=== PATIENT | male | born 1960 | race Caucasian/White ===

== ENCOUNTER 2021-10-31 05:49 | Emergency (ER) | payer OTHER ==
--- OUTSIDE RECORDS SUMMARY | 2021-10-31 05:52 | XMS REPORT | Continuity of Care Document ---
:1960 Author Organization [facility] t Address [address] [place] [address] [address]. [address] [place] [address] Care Team Providers Name Role Phone [phone] Primary Care Physician Unavailable SYSTEM, NOT IN Attending Clinician Unavailable GALLO Attending Clinician Unavailable RUSLAN Attending Clinician Unavailable MARYELLEN MERCHANT Attending Clinician Unavailable SIM Attending Clinician Unavailable MODESTO Attending Clinician Unavailable CHERIE Attending Clinician Unavailable ROQUE SINGLETON Attending Clinician Unavailable Lab, Fam Pob I Attending Clinician Unavailable Ree METZ Attending Clinician REE Attending Clinician Unavailable Doctor Unassigned, Name Attending Clinician Unavailable Payers Payer Name Policy Type Policy Number Effective Date Expiration Date S nannette [employer] O [id number] 2018 00:00:00 Problems This patient has no known problems. Allergies, Adverse Reactions, Alerts Allergy Allergy Status Severity Reaction(s) Onset Inactive Treating Comm ents Source Name Type Date Date Clinician NO KNOWN Drug Active Univers ALLERGIE Class ity of S [facility] Social History Social Habit Start Date Stop Date Quantity Comments Source Exposure to Not sure [facility] SARS-CoV-2 (event) Medica l Branch Sex Assigned At [birth year] [place] [facility] 00:00:00 00:00:00 [facility] Smoking Status Start Date Stop Date Source Unknown if ever smoked [facility] Medications This patient has no known medications. Procedures This patient has no known procedures. Encounters Start End Encounter Admission Attending Care Care Encounter Source Date/Time Date/Time Type Type Clinicians Facility Department ID 2021-09-10 Outpatient SYSTEMMONY MDA [id number] 07:45:22 PROVIDER Mingo hernandez 2021-08-06 Outpatient SYSTEMMONY MDA [id number] 09:14:18 PROVIDER Mingo josette hernandez 2021-10-27 2021-10-27 Outpatient MARIE ZURITA MDA MDA [id number] 06:39:16 06:39:16 Mingo hernandez 2021-10-14 2021-10-14 Outpatient MARIE ZURITA MDA MDA [id number] MD 06:44:41 06:44:41 Mingo o mary 2021-09-29 2021-09-29 Outpatient NIYABLOOMINGTON, MDA MDA [id number] MD 06:31:11 06:40:26 KENIA hernandez 2021-09-15 2021-09-15 Outpatient NIYABLOOMINGTON, MDA MDA [id number] MD 06:39:06 06:45:52 KENIA hernandez 2021-09-11 2021-09-11 Outpatient NIYABLOOMINGTON, MDA MDA [id number] MD 09:04:58 09:12:51 KENIA hernandez 2021-09-11 2021-09-11 Outpatient [facility], MDA MDA [id number] 07:34:02 07:34:02 KENIA hernandez 2021-09-11 2021-09-11 Outpatient [facility], MDA MDA [id number] 07:27:51 07:33:03 KENIA hernandez 2021-09-03 2021-09-03 Outpatient [facility], MDA MDA [id number] MD 14:34:27 14:59:03 KENIA hernandez 2021-09-01 2021-09-01 Outpatient NIYABLOOMINGTON, MDA MDA [id number] 07:15:30 15:18:58 KENIA hernandez 2021-09-01 2021-09-01 Outpatient [facility], MDA MDA [id number] 06:52:43 07:03:34 KENIA hernandez 2021-08-29 2021-08-29 Outpatient NIYABLOOMINGTON, MDA MDA [id number] 11:06:55 23:59:00 KENIA hernandez 2021-08-29 2021-08-29 Outpatient [facility], MDA MDA [id number] 10:25:13 11:05:00 RHIANNON hernandez 2021-08-28 2021-08-28 Outpatient EL SIM, MDA MDA [id number] 08:01:13 08:52:28 STEVE hernandez 2021-08-27 2021-08-27 Outpatient EL SALVADOR, MDA MDA [id number] 07:01:33 07:01:33 PAIGE hernandez 2021-08-26 2021-08-26 Outpatient EL CHERIE, MDA MDA [id number] MD 10:00:00 23:59:00 JERROD hernandez 2021-08-26 2021-08-26 Outpatient EL SALVADOR, MDA MDA [id number] MD 09:33:57 15:19:03 PAIGE hernandez 2021-08-26 2021-08-26 Outpatient EL SALVADOR, MDA MDA [id number] MD 09:25:55 09:39:33 PAIGE hernandez 2021-08-21 2021-08-21 Outpatient EMERITA MERCER, MDA MDA [id number] 10:32:21 10:32:21 KENIA hernandez 2021-08-19 2021-08-19 Outpatient EL MAYUR, MDA MDA [id number] 08:21:26 08:21:26 RHIANNON hernandez 2021-08-18 2021-08-18 Outpatient EL MERCHANT, MDA MDA [id number] 10:45:00 23:59:00 RHIANNON hernandez 2021-08-18 2021-08-18 Outpatient EL CHERIE, MDA MDA [id number] 11:57:10 11:57:10 JERROD hernandez 2021-08-18 2021-08-18 Outpatient EL CHERIE, MDA MDA [id number] 08:32:10 11:22:06 JERROD hernandez 2021-08-18 2021-08-18 Outpatient EL CHERIE, MDA MDA [id number] 07:56:38 08:13:31 JERROD hernandez 2020-11-25 2020-11-25 Outpatient R [facility] [id number] Univers 13:00:00 13:00:00 [id number] [facility] 2020-11-25 2020-11-25 Outpatient R MANI [facility] [id number] Univers 13:00:00 13:00:00 TAQUERIA ity [facility] 2020-11-23 2020-11-23 Laboratory Lab, Adc Fam Pob I [facility] 1.2. [id number] Univers 15:48:04 16:08:04 Only Kate Madsen [facility] [id number] ity of [place] [id number] Jordy as Professio [phone] [address] 2020-11-23 2020-11-23 Outpatient R REE [facility] [id number] Univers 16:00:00 16:00:00 [facility] 2020-11-23 Letter Doctor HUGO [id number] Univers 00:00:00 00:00:00 (Out) Unassigned, MAYA [id number] ity of [facility] [id number] Jordy as [phone] [address] 2020-11-23 2020-11-23 Letter Doctor HUGO [id number] Univers 00:00:00 00:00:00 (Out) Unassigned, MAYA [id number] ity of [facility] [id number] Jordy as [phone] [address] Results This patient has no known results.
[2021-10-31] MEDS ORDERED: DIAZEPAM 5 MG TABLET ONE (07:45)
[2021-10-31] MEDS ORDERED: MORPHINE 4 MG/ML SYR ONE (07:46)
[2021-10-31] MEDS ORDERED: KETOROLAC 30 MG/ML INJ ONE (07:46)
[2021-10-31] MEDS ORDERED: dexAMETHasone 10 MG/ML VIAL ONE (07:46)
[2021-10-31] MEDS ORDERED: ONDANSETRON 4 MG/2 ML VIAL ONE (07:46)
--- NOTE | 2021-10-31 08:12 | ER ---
Nurse's Notes [facility] Name: Eladio Alicia Age: 61 yrs Sex: Male : 1960 Arrival Date: 10/31/2021 Time: 05:53 Bed 5 Private MD: Diagnosis: Sciatica Presentation: 10/31 06:03 Chief complaint: Patient states: "I have been having pain radiating on my left for tw5 about a week. It has been getting worse." Patient points to right flank down to his knee. Coronavirus screen: Vaccine status: Patient reports receiving the 2nd dose of the covid vaccine. Invoiceable no booster. Ebola Screen: Patient negative for fever greater than or equal to 101.5 degrees Fahrenheit, and additional compatible Ebola Virus Disease symptoms Patient denies exposure to infectious person. Patient denies travel to an Ebola-affected area in the 21 days before illness onset. Initial Sepsis Screen: Does the patient meet any 2 criteria? No. Patient's initial sepsis screen is negative. Does the patient have a suspected source of infection? No. Patient's initial sepsis screen is negative. Risk Assessment: Do you want to hurt yourself or someone else? Patient reports no desire to harm self or others. Onset of symptoms is unknown. 06:03 Method Of Arrival: Ambulatory tw5 06:03 Acuity: JAJA 3 tw5 06:03 Care prior to arrival: "I had a hydrocodone about an hour ago and a meloxiam around tw5 0100". Triage Assessment: 06:07 General: Appears in no apparent distress. uncomfortable, Behavior is calm, cooperative, tw5 appropriate for age. Pain: Complains of pain in posterior aspect of right lateral abdomen Pain radiates to right upper thigh and right quadriceps Pain currently is 7 out of 10 on a pain scale. Musculoskeletal: Circulation, motion, and sensation intact. Historical: - Allergies: 06:06 No Known Allergies; tw5 - PMHx: 06:06 colon cancer stage IV; tw5 07:30 Chemotherapy; aa5 - PSHx: 06:07 Cholecystectomy; tw5 - Immunization history:: Flu vaccine is not up to date. It has been more than one year since last vaccine. - Social history:: Smoking status: . - Family history:: not pertinent. Screenin:08 Abuse screen: Denies threats or abuse. Denies injuries from another. Nutritional tw5 screening: No deficits noted. Tuberculosis screening: No symptoms or risk factors identified. Fall Risk None identified. Assessment: 06:08 Neuro: Level of Consciousness is awake, alert, obeys commands, Oriented to person, tw5 place, time, situation. Respiratory: Airway is patent Trachea midline Respiratory effort is even, unlabored. 07:30 Reassessment: Pt refusing labs, refusing CT scan. Pt states "I just had a CT chest aa5 abdomen and pelvis on October 22 and I had blood work on Wednesday at [facility] and I can pull it up on my chart for the doctor to see". MD was notified. . 07:30 General: Appears uncomfortable, Behavior is calm, cooperative. Pain: Complains of pain aa5 in right flank Pain radiates to right leg Pain currently is 8 out of 10 on a pain scale. Quality of pain is described as sharp, shooting, Pain began approximately 1 1/2 weeks ago and gradually getting worse. Neuro: Level of Consciousness is awake, alert, obeys commands, Oriented to person, place, time, situation. Cardiovascular: Heart tones S1 S2 present Rhythm is regular. Respiratory: Airway is patent Respiratory effort is even, unlabored, Respiratory pattern is regular, symmetrical. GI: No signs and/or symptoms were reported involving the gastrointestinal system. Abdomen is round. : No signs and/or symptoms were reported regarding the genitourinary system. EENT: No signs and/or symptoms were reported regarding the EENT system. Derm: Skin is pink, warm \\T\\ dry. Musculoskeletal: Range of motion: intact in all extremities. 07:40 Reassessment: MD at bedside. aa5 07:55 Reassessment: Pt assisted to restroom via wheelchair, pt now placed back in bed and aa5 sitting up watching TV. . 08:30 Reassessment: Patient is alert, oriented x 3, equal unlabored respirations, skin aa5 warm/dry/pink. Patient states feeling better. When asked about his pain, pt states "I feel great now" . General: Appears comfortable. Vital Signs: 06:03 BP 145 / 84; Pulse 86; Resp 14; Temp 98.5(O); Pulse Ox 98% on R/A; Weight 74.84 kg; tw5 Height 6 ft. 0 in. (182.88 cm); Pain 7/10; 08:00 BP 139 / 74; Pulse 80; Resp 16 S; Pulse Ox 98% on R/A; Pain 5/10; aa5 06:03 Body Mass Index 22.38 (74.84 kg, 182.88 cm) tw5 ED Course: 05:53 Patient arrived in ED. bp1 06:02 Claudia eLe is Primary Nurse. tw5 06:05 Triage completed. tw5 06:07 Arm band placed on left wrist. tw5 06:08 Patient has correct armband on for positive identification. Pulse ox on. NIBP on. Door tw5 closed. 06:24 [facility] MD is Attending Physician. mele 07:35 Inserted saline lock: 20 gauge in right antecubital area, using aseptic technique. aa5 08:30 No provider procedures requiring assistance completed. IV discontinued, intact, aa5 bleeding controlled, No redness/swelling at site. Pressure dressing applied. Administered Medications: 07:40 Drug: Ketorolac 30 mg Route: IVP; Site: right antecubital; aa5 08:34 Follow up: Response: No adverse reaction; Marked relief of symptoms aa5 07:40 Drug: Valium (diazepam) 5 mg Route: PO; aa5 08:34 Follow up: Response: No adverse reaction aa5 07:42 Drug: Decadron - Dexamethasone 10 mg Route: IVP; Site: right antecubital; aa5 08:35 Follow up: Response: No adverse reaction; Marked relief of symptoms aa5 07:44 Drug: Zofran (Ondansetron) 4 mg Route: IVP; Site: right antecubital; aa5 08:35 Follow up: Response: No adverse reaction; Marked relief of symptoms aa5 07:46 Drug: morphine 4 mg Route: IVP; Infused Over: 4 mins; Site: right antecubital; aa5 08:35 Follow up: Response: No adverse reaction; Marked relief of symptoms aa5 Medication: 06:08 VIS not applicable for this client. tw5 Outcome: 08:12 Discharge ordered by . [facility] 08:31 Discharged to home ambulatory, with significant other. aa5 08:31 Condition: improved 08:31 Discharge instructions given to patient, Instructed on discharge instructions, follow up and referral plans. medication usage, Demonstrated understanding of instructions, follow-up care, medications, Prescriptions given X 4. 08:35 Patient left the ED. aa5 Signatures: Jose [facility] MD MD cha Calderon, Audri, RN RN aa5 Toya Bangura Tiffany tw5 Corrections: (The following items were deleted from the chart) 08:38 08:38 Patient left the ED. aa5 aa5
--- NOTE | 2021-10-31 08:13 | EDPHYS ---
Physician Documentation [facility] Name: Eladio Alicia Age: 61 yrs Sex: Male : 1960 Arrival Date: 10/31/2021 Time: 05:53 Bed 5 Private MD: ED Physician [facility] HPI: 10/31 08:06 This 61 yrs old Male presents to ER via Ambulatory with complaints of Back mele Pain, Leg Pain. 08:06 The patient presents with pain that is acute, with no known mechanism of injury. The mele symptoms are located in the right mid back and right low back. Onset: The symptoms/episode began/occurred 3 day(s) ago. The pain radiates. Associated signs and symptoms: The patient has no apparent associated signs or symptoms. The problem was sustained from unknown cause. Modifying factors: The patient symptoms are alleviated by nothing, the patient symptoms are aggravated by lifting, movement, standing. Severity of symptoms: At their worst the symptoms were moderate, in the emergency department the symptoms are unchanged. The patient has experienced similar episodes in the past, several times. Historical: - Allergies: 06:06 No Known Allergies; tw5 - PMHx: 06:06 colon cancer stage IV; tw5 07:30 Chemotherapy; aa5 - PSHx: 06:07 Cholecystectomy; tw - Immunization history:: Flu vaccine is not up to date. It has been more than one year since last vaccine. - Social history:: Smoking status: . - Family history:: not pertinent. ROS: 08:06 Constitutional: Negative for fever, chills, and weight loss, Eyes: Negative for injury, mele pain, redness, and discharge, ENT: Negative for injury, pain, and discharge, Neck: Negative for injury, pain, and swelling, Cardiovascular: Negative for chest pain, palpitations, and edema, Respiratory: Negative for shortness of breath, cough, wheezing, and pleuritic chest pain, Abdomen/GI: Negative for abdominal pain, nausea, vomiting, diarrhea, and constipation, : Negative for injury, bleeding, discharge, and swelling, MS/Extremity: Negative for injury and deformity, Skin: Negative for injury, rash, and discoloration, Neuro: Negative for headache, weakness, numbness, tingling, and seizure, Psych: Negative for depression, anxiety, suicide ideation, homicidal ideation, and hallucinations, Allergy/Immunology: Negative for hives, rash, and allergies, Endocrine: Negative for neck swelling, polydipsia, polyuria, polyphagia, and marked weight changes, Hematologic/Lymphatic: Negative for swollen nodes, abnormal bleeding, and unusual bruising. 08:06 Back: Positive for decreased range of motion, pain at rest, pain with movement, of the right mid back and right low back. Exam: 08:06 Constitutional: This is a well developed, well nourished patient who is awake, alert, mele and in no acute distress. Head/Face: Normocephalic, atraumatic. Eyes: Pupils equal round and reactive to light, extra-ocular motions intact. Lids and lashes normal. Conjunctiva and sclera are non-icteric and not injected. Cornea within normal limits. Periorbital areas with no swelling, redness, or edema. ENT: Nares patent. No nasal discharge, no septal abnormalities noted. Tympanic membranes are normal and external auditory canals are clear. Oropharynx with no redness, swelling, or masses, exudates, or evidence of obstruction, uvula midline. Mucous membranes moist. Neck: Trachea midline, no thyromegaly or masses palpated, and no cervical lymphadenopathy. Supple, full range of motion without nuchal rigidity, or vertebral point tenderness. No Meningismus. Chest/axilla: Normal chest wall appearance and motion. Nontender with no deformity. No lesions are appreciated. Cardiovascular: Regular rate and rhythm with a normal S1 and S2. No gallops, murmurs, or rubs. Normal PMI, no JVD. No pulse deficits. Respiratory: Lungs have equal breath sounds bilaterally, clear to auscultation and percussion. No rales, rhonchi or wheezes noted. No increased work of breathing, no retractions or nasal flaring. Abdomen/GI: Soft, non-tender, with normal bowel sounds. No distension or tympany. No guarding or rebound. No evidence of tenderness throughout. Male : Normal genitalia with no discharge or lesions. Skin: Warm, dry with normal turgor. Normal color with no rashes, no lesions, and no evidence of cellulitis. MS/ Extremity: Pulses equal, no cyanosis. Neurovascular intact. Full, normal range of motion. Neuro: Awake and alert, GCS 15, oriented to person, place, time, and situation. Cranial nerves II-XII grossly intact. Motor strength 5/5 in all extremities. Sensory grossly intact. Cerebellar exam normal. Normal gait. Psych: Awake, alert, with orientation to person, place and time. Behavior, mood, and affect are within normal limits. 08:06 Back: pain, that is moderate, ROM is painful, normal spinal alignment noted, CVA tenderness, is absent, vertebral tenderness, is not appreciated, muscle spasm, is appreciated in the left low back, left mid back, right mid back and right low back. Vital Signs: 06:03 BP 145 / 84; Pulse 86; Resp 14; Temp 98.5(O); Pulse Ox 98% on R/A; Weight 74.84 kg; tw5 Height 6 ft. 0 in. (182.88 cm); Pain 7/10; 08:00 BP 139 / 74; Pulse 80; Resp 16 S; Pulse Ox 98% on R/A; Pain 5/10; aa5 06:03 Body Mass Index 22.38 (74.84 kg, 182.88 cm) tw5 MDM: 06:25 Patient medically screened. [facility] 08:10 ED course: patient refused all ct/xray/labs , all was done recently at [facility]. [facility] 08:11 Data reviewed: vital signs, nurses notes. [facility] Administered Medications: 07:40 Drug: Ketorolac 30 mg Route: IVP; Site: right antecubital; aa5 08:34 Follow up: Response: No adverse reaction; Marked relief of symptoms aa5 07:40 Drug: Valium (diazepam) 5 mg Route: PO; aa5 08:34 Follow up: Response: No adverse reaction aa5 07:42 Drug: Decadron - Dexamethasone 10 mg Route: IVP; Site: right antecubital; aa5 08:35 Follow up: Response: No adverse reaction; Marked relief of symptoms aa5 07:44 Drug: Zofran (Ondansetron) 4 mg Route: IVP; Site: right antecubital; aa5 08:35 Follow up: Response: No adverse reaction; Marked relief of symptoms aa5 07:46 Drug: morphine 4 mg Route: IVP; Infused Over: 4 mins; Site: right antecubital; aa5 08:35 Follow up: Response: No adverse reaction; Marked relief of symptoms aa5 Disposition Summary: 10/31/21 08:12 Discharge Ordered Location: Home mele Problem: new mele Symptoms: have improved mele Condition: Stable mele Diagnosis - Sciatica mele Followup: mele - With: Private Physician - When: 2 - 3 days - Reason: Recheck today's complaints, Continuance of care, Re-evaluation by your physician Discharge Instructions: - Discharge Summary Sheet mele - Sciatica mele - Sciatica, [id number] Forms: - Medication Reconciliation Form mele - Thank You Letter mele - Antibiotic Education mele - Prescription Opioid Use [facility] Prescriptions: - dexamethasone 2 mg Oral tablet - take 1 tablet by ORAL route 2 times per day; 12 tablet; Refills: 0, Product mele Selection Permitted - Ibuprofen 600 mg Oral Tablet - take 1 tablet by ORAL route every 6 hours As needed take with food; 30 tablet; mele Refills: 0, Product Selection Permitted - Valium 5 mg Oral Tablet - take 1 tablet by ORAL route every 8 hours As needed; 20 tablet; Refills: 0, [facility] Product Selection Permitted - Tylenol-Codeine #3 300 mg-30 mg Oral - take 2 tablet by ORAL route every 6 hours; 20 tablet; Refills: 0, Product mele Selection Permitted Signatures: Dispatcher [employer] EDMS [facility] MD MD cha Calderon, Audri RN RN aa5 Claudia Lee tw5 Corrections: (The following items were deleted from the chart) 08:22 07:11 Spine Lumbar Wo Con+CT.RAD.BRZ ordered. EDFL EDMS 08:34 07:10 Urine Dipstick-Ancillary ordered. mele aa5
[2021-10-31 08:50] VITALS: TEMP 98.5; O2SAT 98
[2021-10-31 08:52] VITALS: BP 139/74
== END 2021-10-31 08:38 | disposition home or self-care (01) ==
LOC: ER 05:49
DX: M54.30 Sciatica, unspecified side (principal); Z85.038 Personal history of other malignant neoplasm of large intestine
CPT/HCPCS: 96375; 96374; 99284; J1100; J2405